=== PATIENT | male | born 1950 | race Caucasian/White ===

== ENCOUNTER → 2021-12-05 | Outpatient (CLI) | payer BC | LOC: KOH-I 10:13 | DX: F17.210 Nicotine dependence, cigarettes, uncomplicated (principal); R91.1 Solitary pulmonary nodule | CPT/HCPCS: 71271 ==

== ENCOUNTER → 2021-12-16 | Outpatient (CLI) | payer BC | LOC: EXRD 10:28 | DX: N28.1 Cyst of kidney, acquired (principal) | CPT/HCPCS: 76775 ==